=== PATIENT | female | born 1990 | race African-American/Black ===

== ENCOUNTER 2019-03-16 07:14 | Emergency (ER) | payer SELFPAY ==
[2019-03-16 07:18] VITALS: BP 118/72
[2019-03-16] MEDS ORDERED: PSEUDOEPHEDRINE HCL 30 MG TABLET PO ONE (07:27)
--- NOTE | 2019-03-16 07:32 | ER Document Report ---
HPI - HPI Patient complains to provider of: Cough and congestion Time Seen by Provider: 03/16/19 07:20 Pain Level: Denies Context: Patient is an otherwise healthy 28-year-old female presents to the emergency department for generalized cough and congestion for the last 2 weeks. Patient's denying any fevers. Patient voices she feels very congested and is concerned for a possible sinus infection. Patient's denying any nausea, vomiting, diar spencer, chest pain, shortness of breath, abdominal pain, dysuria. Patient voices her last menstrual cycle finished on the eighth of this month. Patient voices there is no chance she is . - EENT EENT: REPORTS: Ear Pain - REPRODUCTIVE Reproductive: DENIES: : Past Medical History - General Information source: Patient - Social History Smoking Status: Current Every Day Smoker Family History: Reviewed & Not Pertinent Patient has suicidal ideation: No Patient has homicidal ideation: No Renal/ Medical History: Denies: Hx Peritoneal Dialysis - Immunizations Hx Diphtheria, Pertussis, Tetanus Vaccination: Yes Vertical Provider Document - CONSTITUTIONAL Agree With Documented VS: Yes Notes: GENERAL: Alert, interacts well. No acute distress. HEAD: Normocephalic, atraumatic. No frontal or maxillary sinus tenderness noted EYES: Pupils equal, round, and reactive to light. Extraocular movements intact. ENT: Oral mucosa moist, tongue midline. Nares patent, swollen turbinates noted bilaterally, TM's intact, nonerythematous, nonbulging bilaterally. Pharynx within normal limits no palatal petechiae noted NECK: Full range of motion. Supple. Trachea midline. No lymphadenopathy appreciated LUNGS: Clear to auscultation bilaterally, no wheezes, rales, or rhonchi. No respiratory distress. HEART: Regular rate and rhythm. No murmur ABDOMEN: Soft, non-tender. Non-distended. Bowel sounds present in all 4 quadrants. EXTREMITIES: Moves all 4 extremities spontaneously. No edema, normal radial and dorsalis pedis pulses bilaterally. No cyanosis. BACK: no cervical, thoracic, lumbar midline tenderness. No saddle anesthesia, normal distal neurovascular exam. NEUROLOGICAL: Alert and oriented x3. Normal speech. cranial nerves II through XII grossly intact. PSYCH: Normal affect, normal mood. SKIN: Warm, dry, normal turgor. No rashes or lesions noted. - INFECTION CONTROL TRAVEL OUTSIDE OF THE [place] IN LAST 30 DAYS: No Course - Re-evaluation Re-evalutation: 03/16/19 07:29 Patients vital signs are within normal limits in the emergency department. Patient's denying a fever at home. Patient's complaining of generalized sinus congestion and pressure. Patient has no maxillary or frontal sinus tenderness upon palpation. I discussed with her likely diagnosis of sinusitis that is viral in nature. Discussed continued use of [id number] Mucinex as well as adding a nasal steroid spray and Sudafed. Patient's lung sounds are clear and equal in all ralph, she is denying any respiratory distress or chest heaviness. I do not feel as though chest x-ray is warranted at this time. At this time will discharge with return precautions and follow-up recommendat ions. Verbal discharge instructions given a the bedside and opportunity for questions given. Medication warnings reviewed. Patient is in agreement with this plan and has verbalized understanding of return precautions and the need for primary care follow-up in the next 24-72 hours. This medical record was dictated with voice recognizing software. There may be grammatical, syntax errors that are unintended. - Vital Signs Vital signs: Temp Pulse Resp BP Pulse Ox 97.5 F 59 L 20 118/72 99 03/16/19 07:17 03/16/19 07:17 03/16/19 07:17 03/16/19 07:17 03/16/19 07:17 Discharge - Discharge Clinical Impression: Upper respiratory infection Qualifiers: URI type: unspecified viral URI Qualified Code(s): J06.9 - Acute upper respiratory infection, unspecified Sinusitis Qualifiers: Sinusitis location: unspecified location Chronicity: acute Recurrence: non- recurrent Qualified Code(s): J01.90 - Acute sinusitis, unspecified Condition: Stable Disposition: HOME, SELF-CARE Instructions: Viral Syndrome ([facility]), Upper Respiratory Illness ([facility]) Additional Instructions: As we discussed you have been seen and treated in the emergency department for an upper respiratory infection. These are typically caused by viruses and do not respond to antibiotics. Please continue use [id number] Mucinex for generalized cough and congestion. Please add Sudafed and nasal spray to your cold medication regimen. Please also stay well-hydrated and follow-up with your primary care provider. Return to the emergency room for any further concerns. Prescriptions: Mometasone Furoate [Nasonex] 1 spray NS Q12 #1 spray.pump Pseudoephedrine HCl [Sudafed 12 Hour] 120 mg PO BID #16 tablet.er
== END 2019-03-16 07:32 | disposition home or self-care (01) ==
LOC: ER 07:14
DX: J06.9 Acute upper respiratory infection, unspecified (principal); J01.90 Acute sinusitis, unspecified; F17.200 Nicotine dependence, unspecified, uncomplicated
CPT/HCPCS: 99283